=== PATIENT | male | born 1980 | race Hispanic/Latino ===

== ENCOUNTER 2024-11-29 15:37 | Emergency (ER) | payer BC ==
--- NOTE | 2024-11-29 16:34 | RAD REPORT ---
EXAMINATION: ONE VIEW CHEST XR CLINICAL INDICATION: sent for abnl ekg TECHNIQUE: Frontal chest projection is submitted. Examination is limited by patient positioning and t echnique. COMPARISON: 11/06/2008 FINDINGS: Grossly clear lungs. Examination limited by portable technique in soft tissue attenuation artifact. T he heart is upper limit of normal in size. No displaced fractures identified.
[2024-11-29 16:54] LABS: Absolute Basophils 0.1 K/uL (0-0.5); Absolute Eosinophils 0.2 K/uL (0-0.5); Absolute Lymphocytes (CBC) 1.4 K/uL (0.7-4.9); Absolute Monocytes 0.5 K/uL (0.1-1.3); Absolute Neutrophil 6.4 K/uL (1.8-8.0); Basophils % 0.8 % (0-1.3); Eosinophils % 1.9 % (0-4.4); Hematocrit 47.2 % (39.6-49.0); Hemoglobin 16.6 g/dL (13.6-17.9); MCH 31.2 pg (27.0-35.0); MCHC 35.2 g/dL (32.0-36.0); MCV 88.7 fL (80-100); MPV 7.6 fL (7.6-11.3); Monocytes % 5.7 % (3.3-12.3); Neutrophils % 75.6 % (41.7-73.7); Nucleated Red Blood Cells % 0.3 % (0-0); Platelets 256 thou/uL (152-406); RBC Red Blood Cell Count 5.32 M/uL (4.33-5.43); Red Cell Distribution Width 13.8 % (12.1-15.2)
[2024-11-29 17:00] LABS: Troponin High Sensitivity 6.3 pg/mL (<58.9)
--- NOTE | 2024-11-29 17:28 | EDPHYS ---
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 16:10 Patient reports was at PCP today for medical clearance for work, had no complaints, had rn EKG performed for screening and was told was abnormal. Told could follow-up with cardiology for clearance or could go to emergency room. PCP told patient he would see a tafe registrar in the emergency room. Patient denies any recent chest pain or shortness of breath. No fever or cough. No hemoptysis. No family history of NC in their 40s. Patient has no complaints.. Historical: - Allergies: 15:47 No Known Allergies; ap3 - PMHx: 15:47 Hypertension; ap3 - Immunization history:: Client reports receiving the 2nd dose of the Covid vaccine. - Infectious Disease History:: Denies. - Social history:: Smoking status: Reported history of juuling and/or vaping. - Family history:: not pertinent. - Hospitalizations: : No recent hospitalization is reported. ROS: 16:10 Constitutional: Negative for fever, chills, and weight loss, Cardiovascular: Negative rn for chest pain, palpitations, and edema, Respiratory: Negative for shortness of breath, cough, wheezing, and pleuritic chest pain, Abdomen/GI: Negative for abdominal pain, nausea, vomiting, diarrhea, and constipation, MS/Extremity: Negative for injury and deformity, Skin: Negative for injury, rash, and discoloration, Neuro: Negative for headache, weakness, numbness, tingling, and seizure, Exam: 16:10 Constitutional: Overweight male, no acute distress Cardiovascular: Tachycardic, rn regular. no pulse deficits. Respiratory: No increased work of breathing, no retractions or nasal flaring. Abdomen/GI: Soft, non-tender MS/ Extremity: Pulses equal, no cyanosis. Neuro: Awake and alert, GCS 15 16:17 ECG was reviewed by the Attending Physician. rn Vital Signs: 15:45 BP 140 / 89; Pulse 103; Resp 17; Temp 97.7(O); Pulse Ox 98% on R/A; Weight 167.83 kg; ap3 Height 5 ft. 6 in. ; Pain 0/10; 16:35 BP 116 / 77; Pulse 84; Resp 15; Pulse Ox 94% ; cm10 17:47 BP 126 / 74; Pulse 67; Resp 14; Pulse Ox 96% ; cm10 15:45 Body Mass Index 59.72 (167.83 kg, 167.64 cm) ap3 15:45 Pain Scale: Adult ap3 MDM: 15:48 Medical Screening Exam initiated rn 17:26 Differential Diagnosis Abnormal EKG, acute or subacute NC, electrical conduction rn abnormality, incidental finding. Data reviewed: vital signs, nurses notes, lab test result(s), EKG, radiologic studies, plain films, and as a result, I will discharge patient. Counseling: I had a detailed discussion with the patient and/or guardian regarding the historical points, exam findings, and any diagnostic results supporting the discharge/admit diagnosis, lab results, radiology results, the need for outpatient follow up, to return to the emergency department if symptoms worsen or persist or if there are any questions or concerns that arise at home. Special discussion: I discussed with the patient/guardian in detail that at this point there is no indication for admission to the hospital. It is understood, however, that if the symptoms persist or worsen the patient needs to return immediately for re-evaluation. Based on the history and exam findings, there is no indication for further emergent testing or inpatient evaluation. I discussed with the patient/guardian the need to see the tafe registrar for further evaluation of the symptoms. ED course: Troponin and BNP negative. ECG without acute findings. Chest x-ray images negative for pneumonia or pneumothorax per my interpretation. Patient has never had episode of chest pain or dyspnea. I still recommend cardiology follow-up given ECG not completely normal but nothing to indicate that he needs emergent admission and workup at this time. I have personally reviewed all of the results, including but not limited to blood tests and imaging deemed necessary to safely discharge this patient at this time. All results given to and printed out for patient. I personally went over all the results with the patient and answered all questions. Patient will follow-up with PCP and or specialist as discussed. Return precautions given and understood.. 11/29 15:53 Order name: Basic Metabolic Panel; Complete Time: 17:20 rn 11/29 15:53 Order name: CBC with Diff; Complete Time: 17:20 rn 11/29 15:53 Order name: NT PRO-BNP; Complete Time: 17:20 rn 11/29 15:53 Order name: Troponin HS; Complete Time: 17:20 rn 11/29 15:53 Order name: XRAY Chest (1 view); Complete Time: 16:40 rn 11/29 15:53 Order name: Cardiac monitoring; Complete Time: 16:00 rn 11/29 15:53 Order name: EKG - Nurse/Tech; Complete Time: 15:56 rn 11/29 15:53 Order name: IV Saline Lock; Complete Time: 16:35 rn 11/29 15:53 Order name: Labs collected and sent; Complete Time: 16:35 rn 11/29 15:53 Order name: O2 Per Protocol; Complete Time: 16:00 rn 11/29 15:53 Order name: O2 Sat Monitoring; Complete Time: 16:00 rn EC:17 Rate is 95 beats/min. Rhythm is regular. QRS [place] is Normal. DE interval is normal. QRS rn interval is normal. QT interval is normal. No Q waves. T waves are Normal. No ST changes noted. Clinical impression: NSR w/ Non-specific ST/T Changes. Interpreted by me. Reviewed by me. Administered Medications: No medications were administered Disposition Summary: 11/29/24 17:28 Discharge Ordered Notes: Location: Home rn Problem: new rn Symptoms: are unchanged rn Condition: Stable rn Diagnosis - Abnormal electrocardiogram [ECG] [EKG] rn Followup: rn - With: Private Physician - When: As needed - Reason: Recheck today's complaints, Re-evaluation by your physician Discharge Instructions: - Discharge Summary Sheet rn - Heart Disease senior government program analyst Forms: - Medication Reconciliation Form rn - Antibiotic frit mixer and burner - Prescription Opioid Use rn - Patient Portal Instructions rn - Leadership Thank You Letter rn Signatures: Dispatcher [employer] Jeff Roberson MD MD rn Prokisch, Amanda, RN RN ap3 Corrections: (The following items were deleted from the chart) 15:54 15:54 Chest Single View+RAD.[email or web address].[email or web address] ordered. EDUT EDMS
--- NOTE | 2024-11-29 17:28 | ER ---
Nurse's Notes [facility] Name: Antoni Galdamez Age: 44 yrs Sex: Male : 1980 Arrival Date: 11/29/2024 Time: 15:37 Bed 20 Private MD: Diagnosis: Abnormal electrocardiogram [ECG] [EKG] Presentation: 11/29 15:45 Chief complaint: Patient states: he was at his pcp's office getting "medical clearance ap3 card" and there "was something on his EKG that needs further clearance". Patient denies any chest pain or shortness of breath at this time. Coronavirus screen: At this time, the client does not indicate any symptoms associated with coronavirus-19. Ebola Screen: No symptoms or risks identified at this time. Initial Sepsis Screen: Does the patient meet any 2 criteria? HR > 90 bpm. Does the patient have a suspected source of infection? No. Patient's initial sepsis screen is negative. Risk Assessment: Do you want to hurt yourself or someone else? Patient reports no desire to harm self or others. Onset of symptoms is unknown. 15:45 Method Of Arrival: Ambulatory ap3 15:45 Acuity: BO 3 ap3 Triage Assessment: 15:47 General: Appears in no apparent distress. Behavior is calm, cooperative, appropriate ap3 for age. Pain: Denies pain. Neuro: Level of Consciousness is awake, alert, obeys commands, Oriented to person, place, time, situation, Appropriate for age. Cardiovascular: Patient's skin is warm and dry. Respiratory: Airway is patent Respiratory effort is even, unlabored, Respiratory pattern is regular, symmetrical. Historical: - Allergies: 15:47 No Known Allergies; ap3 - PMHx: 15:47 Hypertension; ap3 - Immunization history:: Client reports receiving the 2nd dose of the Covid vaccine. - Infectious Disease History:: Denies. - Social history:: Smoking status: Reported history of juuling and/or vaping. - Family history:: not pertinent. - Hospitalizations: : No recent hospitalization is reported. Screenin:47 [facility] ED Fall Risk Assessment (Adult) History of falling in the last 3 months, ap3 including since admission No falls in past 3 months (0 pts) Confusion or Disorientation No (0 pts) Intoxicated or Sedated No (0 pts) Impaired Gait No (0 pts) Mobility Assist Device Used No (0 pt) Altered Elimination No (0 pt) Score/Fall Risk Level 0 - 2 = Low Risk Oriented to surroundings, Maintained a safe environment, Educated pt \\T\\ family on fall prevention, incl call for assistance when getting out of bed, Assessed \\T\\ reinforced patient's understanding of fall precautions, Hourly rounding (assess needs \\T\\ fall precautionary measures) done, Used ambulatory aids as needed (educated on \\T\\ assisted with). Abuse screen: Denies threats or abuse. Nutritional screening: No deficits noted. Tuberculosis screening: No symptoms or risk factors identified. Assessment: 16:30 General: Appears in no apparent distress. comfortable, Behavior is calm, cooperative. cm10 Pain: Denies pain. Neuro: No deficits noted. Level of Consciousness is awake, alert, obeys commands, Oriented to person, place, time, situation, Appropriate for age. Respiratory: No deficits noted. Airway is patent Respiratory effort is even, unlabored, Respiratory pattern is regular, symmetrical. Derm: Skin is pink, warm \\T\\ dry. Musculoskeletal: Range of motion: intact in all extremities. Vital Signs: 15:45 BP 140 / 89; Pulse 103; Resp 17; Temp 97.7(O); Pulse Ox 98% on R/A; Weight 167.83 kg; ap3 Height 5 ft. 6 in. ; Pain 0/10; 16:35 BP 116 / 77; Pulse 84; Resp 15; Pulse Ox 94% ; cm10 17:47 BP 126 / 74; Pulse 67; Resp 14; Pulse Ox 96% ; cm10 15:45 Body Mass Index 59.72 (167.83 kg, 167.64 cm) ap3 15:45 Pain Scale: Adult ap3 Vitals: 16:30 Cardiac Rhythm Assessment Regular. cm10 ED Course: 15:39 Patient arrived in ED. im 15:47 Triage completed. ap3 15:47 Arm band placed on right wrist. ap3 15:48 Jeff Rodríguez MD is Attending Physician. rn 15:56 EKG done, by ED staff, reviewed by Jeff Rodríguez MD. ap3 16:24 XRAY Chest (1 view) In Process Unspecified. EDMS 16:34 Helen Kruger, RN is Primary Nurse. cm10 16:34 Patient has correct armband on for positive identification. Bed in low position. Call cm10 light in reach. Side rails up X2. Client placed on continuous cardiac and pulse oximetry monitoring. NIBP monitoring applied. telemetry monitor on. 16:34 Initial lab(s) drawn, by me, sent to lab. Inserted saline lock: 20 gauge in right cm10 forearm, using aseptic technique. Blood collected. Flushed with 10 mL NS Missed attempt(s): 20 gauge in right forearm. Bleeding controlled, band aid applied, catheter tip intact. 17:47 No provider procedures requiring assistance completed. IV discontinued, intact, cm10 bleeding controlled, No redness/swelling at site. Pressure dressing applied. 17:48 Provided Education on: Follow-up instructions. cm10 Administered Medications: No medications were administered Medication: 15:48 VIS not applicable for this client. ap3 Outcome: 17:28 Discharge ordered by . rn 17:48 Discharged to home ambulatory, cm10 17:48 Condition: good 17:48 Discharge instructions given to patient, Instructed on discharge instructions, follow up and referral plans. Demonstrated understanding of instructions, follow-up care, 17:48 Patient left the ED. cm10 Signatures: Dispatcher [employer] EDMS Jeff Rodríguez MD MD rn Prokisch, Amanda RN RN ap3 Negar Zimmer Clarissa, RN RN cm10 Corrections: (The following items were deleted from the chart) 16:35 16:35 BP 167 / 7; Pulse 84bpm; Resp 15bpm; Pulse Ox 94%; cm10 cm10
[2024-11-29 18:12] VITALS: TEMP 97.7
[2024-11-29 18:18] VITALS: BP 126/74; O2SAT 96
--- NOTE | 2024-12-02 14:51 | EKG ---
Test Date: 2024-11-29 Test Time: 15:53:25 Access Clerk: ALP MEASUREMENT RESULTS: Intervals: Rate: 95 WA: 152 QRSD: 88 QT: 356 QTc: 447 [place]: P: 26 WA: 152 QRS: 73 T: 9 INTERPRETIVE STATEMENTS: Normal sinus rhythm Inferior infarct, age undetermined Abnormal ECG Compared to ECG 01/15/2018 12:21:06 Myocardial infarct finding now present Electronically Signed On 12-02-24 14:43:36 CDT by Eloy Allen
== END 2024-11-29 17:48 | disposition home or self-care (01) ==
LOC: ER 15:37
DX: R94.31 Abnormal electrocardiogram [ECG] [EKG] (principal); I10 Essential (primary) hypertension
CPT/HCPCS: 36415; 71045; 80048; 83880; 84484; 85025; 93005; 99284